=== PATIENT | female | born 1965 | race Caucasian/White ===

== ENCOUNTER 2021-09-13 14:40 | Inpatient (IN) | payer OTHER ==
[~2021-09-13] VITALS: Ht 152.4 cm; Wt 71.2 kg
[2021-09-13 15:21] LABS: HEMOGLOBIN 10.2 gm/dl (12.3-15.3); RED BLOOD COUNT 3.38 M/UL (4.00-5.10); WHITE BLOOD COUNT 8.4 K/UL (4.5-11.0)
[2021-09-13 15:57] LABS: BUN/CREATININE RATIO 13 (0-10)
[2021-09-14] MEDS ORDERED: SYMBICORT 160-1 INHA INH (05:22)
[2021-09-14] MEDS ORDERED: LOPRESSOR 25 MG25 MG PO (05:22)
[2021-09-14] MEDS ORDERED: SILTUSSIN100 MG/5 M PO (05:23)
[2021-09-14] MEDS ORDERED: ACETAMINOPHEN325 MG PO (05:24)
[2021-09-14] MEDS ORDERED: PROAIR HFA8.5 GM INH (05:28)
[2021-09-14] MEDS ORDERED: KEPPRA500 MG PO (05:29)
[2021-09-14] MEDS ORDERED: CELEBREX100 MG PO (05:29)
[2021-09-14] MEDS ORDERED: GABAPENTIN400 MG PO (05:29)
[2021-09-14] MEDS ORDERED: VITAMIN D325 MCG PO (05:30)
[2021-09-14] MEDS ORDERED: ACIDOPHILUS-PE1 EACH PO (05:32)
[2021-09-14 06:37] LABS: HEMOGLOBIN 9.7 gm/dl (12.3-15.3); RED BLOOD COUNT 3.24 M/UL (4.00-5.10); WHITE BLOOD COUNT 7.2 K/UL (4.5-11.0)
[2021-09-14 07:01] LABS: BUN/CREATININE RATIO 18 (0-10)
[2021-09-14] MEDS ORDERED: LEVOFLOXACIN750 MG PO (17:16)
== END 2021-09-15 17:41 | DRG 194 ==
LOC: ER1 14:40 → MED SURG 4 16:00 → CDU 16:00 → MED SURG 4 18:31
PROVIDERS: ADMIT Emergency Medicine
DX: J18.9 Pneumonia, unspecified organism (principal); J44.1 Chronic obstructive pulmonary disease with (acute) exacerbation; J96.11 Chronic respiratory failure with hypoxia; J44.0 Chronic obstructive pulmonary disease with (acute) lower respiratory infection; F17.210 Nicotine dependence, cigarettes, uncomplicated; Z20.822 Contact with and (suspected) exposure to COVID-19; I10 Essential (primary) hypertension; G40.909 Epilepsy, unspecified, not intractable, without status epilepticus; M54.50 Low back pain, unspecified; G89.29 Other chronic pain; E78.5 Hyperlipidemia, unspecified; F32.A Depression, unspecified; F41.9 Anxiety disorder, unspecified; Z99.81 Dependence on supplemental oxygen; Z87.11 Personal history of peptic ulcer disease; Z98.890 Other specified postprocedural states; Z82.49 Family history of ischemic heart disease and other diseases of the circulatory system; Z83.3 Family history of diabetes mellitus; Z80.8 Family history of malignant neoplasm of other organs or systems; Z88.5 Allergy status to narcotic agent; Z88.8 Allergy status to other drugs, medicaments and biological substances
CPT/HCPCS: ECHO; 0240U; 36415; 36600; 71045; 80053; 81001; 82550; 82553; 82803; 83605; 83874; 83880; 84484; 85025; 85027; 87040; 93005; 93306; 94640; 94664; 94760; 99285; J1650; J1956; J2930